=== PATIENT | male | born 1950 | race Asian ===

== ENCOUNTER 2024-07-29 15:34 | Emergency (ER) | payer SELFPAY ==
[~2024-07-29] VITALS: Ht 167.6 cm; Wt 75.0 kg
[2024-07-29 15:39] VITALS: TEMP 36.6; O2SAT 97
[2024-07-29] MEDS: ACETAMINOPHEN 325MG TABLET PO ONE (18:50)
[2024-07-29 19:58] VITALS: BP 153/95; PULSE 64; RESP 16; O2SAT 97
== END 2024-07-29 20:00 | disposition home or self-care (01) ==
LOC: ER 15:51
DX: R51.9 Headache, unspecified (principal); R42 Dizziness and giddiness; E78.5 Hyperlipidemia, unspecified; V89.2XXA Person injured in unspecified motor-vehicle accident, traffic, initial encounter; Y93.89 Activity, other specified; Y92.410 Unspecified street and highway as the place of occurrence of the external cause; Y99.8 Other external cause status
CPT/HCPCS: 99283